=== PATIENT | female | born 2000 | race Caucasian/White ===

== ENCOUNTER 2018-03-11 17:32 | Emergency (ER) | payer MEDICAID ==
[~2018-03-11] VITALS: Ht 157.5 cm; Wt 86.2 kg
[2018-03-11 17:42] VITALS: BP 117/67
== END 2018-03-11 19:15 | disposition left against medical advice (07) ==
LOC: ER 17:32
DX: R51 Headache (principal); M54.9 Dorsalgia, unspecified; Z53.21 Procedure and treatment not carried out due to patient leaving prior to being seen by health care provider